=== PATIENT | male | born 1975 | race American Indian/Alaskan Native ===

== ENCOUNTER 2016-12-08 03:10 | Inpatient (IN) | payer OTHER ==
[2016-12-08] MEDS ORDERED: NACL 0.9% 1000 ML 1,000 ML IV ONE (03:18)
[2016-12-08] MEDS ORDERED: NACL 0.9% 1000 ML 1,000 ML ONE (03:18)
[2016-12-08] MEDS ORDERED: HEPARIN 10,000 UNITS/10 ML IV ONE (03:18)
[2016-12-08] MEDS ORDERED: HEPARIN 10,000 UNITS/10 ML ONE ×2 (03:18→03:58)
[2016-12-08] MEDS ORDERED: PLAVIX ONE (03:19)
--- NOTE | 2016-12-08 03:21 | Emergency Department Report ---
HPI - General Time Seen by Provider: 12/08/16 03:18 - HPI HPI: 41-year-old female presents the emergency department via EMS from home with complaint of chest pain that began about 40 minutes prior to presentation.. EKG sent by EMS was concerning for STEMI. They were 3 minutes out from the emergency department so it was rechecked upon arrival and repeat EKG does appear consistent with acute [place] in the anterolateral region. Code STEMI called and Dr. Allen was contacted and will be coming in for the operations label clerk activation. The patient complains of midsternal to left-sided chest pain. He has a past medical history of hypertension, hyperlipidemia, diabetes. He is a tobacco smoker but denies any illicit drug use. He received 324 mg of aspirin and 1 sublingual nitroglycerin in route. ED Past Medical Hx - Medications Home Medications: Home Medications Medication Instructions Recorded Confirmed Last Taken Type Unobtainable 12/08/16 12/08/16 Unknown History ED Review of Systems ROS: Stated complaint: CHEST PAIN Other details as noted in HPI Comment: All other systems reviewed and negative Constitutional: denies: chills, fever Eyes: denies: eye pain, eye discharge, vision change ENT: denies: ear pain, throat pain Respiratory: shortness of breath. denies: cough Cardiovascular: chest pain. denies: edema Gastrointestinal: denies: abdominal pain, vomiting Genitourinary: denies: urgency, dysuria Musculoskeletal: denies: back pain, joint swelling, arthralgia Skin: denies: rash, lesions Neurological: denies: headache, weakness, paresthesias Physical Exam - Physical Exam Physical Exam: GENERAL: The patient is ill-appearing and appears very uncomfortable. HENT: Normocephalic. Atraumatic. Patient has moist mucous membranes. EYES: Extraocular motions are intact. Pupils equal reactive to light bilaterally. NECK: Supple. Trachea is midline. CHEST/LUNGS: Clear to auscultation. There is no respiratory distress noted. HEART/CARDIOVASCULAR: Regular. There is no tachycardia. There is no gallop rub or murmur. ABDOMEN: Abdomen is soft, nontender. Patient has normal bowel sounds. There is no abdominal distention. SKIN: Skin is warm but the patient is diaphoretic. NEURO: The patient is awake, alert, and oriented. The patient is cooperative. The patient has no focal neurologic deficits. The patient has normal speech. MUSCULOSKELETAL: There is no tenderness or deformity. Radial pulse was +2/4 bilaterally. There is no evidence of acute injury. ED Course - Consultations Consultation #1: 12/08/16 03:26 The ticket counter, Dr. Allen, was contacted about 3:15 AM and is on his way in for a operations label clerk activation for suspected STEMI. ED Medical Decision Making - Lab Data Result diagrams: 12/08/16 03:20 12/08/16 03:20 - EKG Data -: EKG Interpreted by Me EKG shows normal: sinus rhythm, axis (left axis deviation), intervals, QRS complexes (Q waves to the anteroseptal region), ST-T waves (ST elevations to the septal and anterior and lateral leads with ST depressions in the inferior leads) Rate: normal - EKG Data Interpretation: acute WY - Radiology Data Radiology results: image reviewed interpreted by me: Chest x-ray does not show any acute process. There are no pleural effusions, obvious pneumonia and there is no pneumothorax. - Medical Decision Making 41-year-old male presents with what appears to be a STEMI. EMS EKG was suspicious but it was confirmed to be a anterolateral ST elevation WY on EKG. Code STEMI was called. The ticket counter was contacted. Blood was obtained, chest x-ray was obtained. The patient already had aspirin and sublingual nitroglycerin in route. We gave him a heparin bolus, started a nitroglycerin drip, he was given morphine and Zofran. Chest x-ray did not show any acute process. So far the labs have not shown any etiology of his symptoms are mostly unremarkable. Just as we were about to take him to the operations label clerk, the patient went into V. tach and went unresponsive. He was given a 200 J defibrillation and he went back into sinus rhythm. He then started appearing to go into a ventricular fibrillation but converted back to sinus rhythm on his own. Amiodarone was started at this point. I thought I might have to intubate the patient but he became awake and alert and was responding appropriately to questions and protecting his own airway. The patient was watched for another few minutes and remained in a normal sinus rhythm with a normal rate and he was then taken to the Shutdown Coordinator. Looking at the Shutdown Coordinator records, it appears as if the patient may have had a LAD occlusion with a bare-metal stent placed. - Differential Diagnosis STEMI, dysrhythmia, dissection Critical Care Time: Yes Critical care time in (mins) excluding proc time.: 31 Critical care attestation.: If time is entered above; I have spent that time in minutes in the direct care of this critically ill patient, excluding procedure time. Critical care time was spent on this patient and during his initial evaluation, multiple re- evaluations, interpretation of the EKG, discussion with the ticket counter, bedside treatment of tachycardia arrhythmia, interpretation of labs, and multiple discussions with the patient himself. Critical Care Time: 31 minutes ED Disposition Clinical Impression: ST elevation myocardial infarction (STEMI) of anterolateral wall, Acute coronary syndrome Chest pain Qualifiers: Chest pain type: unspecified Qualified Code(s): R07.9 - Chest pain, unspecified Hypertension Qualifiers: Hypertension type: essential hypertension Qualified Code(s): I10 - Essential ( primary) hypertension Disposition: DC-09 OP ADMIT IP TO THIS HOSP Is pt being admited?: Yes Condition: Serious Instructions: Chest Pain (ED), Hypertension (ED) Referrals: PRIMARY CARE, [Primary Care Provider] - 3-5 Days Time of Disposition: 04:57
[2016-12-08] MEDS ORDERED: MORPHINE ONE (03:28)
[2016-12-08] MEDS ORDERED: ZOFRAN ONE ×2 (03:28→16:50)
[2016-12-08] MEDS ORDERED: TRIDIL DRIP 50MG/250ML 50 MG/250 ML BOTTLE ONE (03:32)
[2016-12-08] MEDS ORDERED: TRIDIL DRIP 50MG/250ML 50 MG/250 ML BOTTLE IV SCH (03:35)
[2016-12-08] MEDS ORDERED: MORPHINE IV ONE (03:35)
[2016-12-08] MEDS ORDERED: ZOFRAN IV ONE ×2 (03:35→17:36)
[2016-12-08 03:37] LABS: Hematocrit 42.4 % (35.5-45.6); Hemoglobin 14.6 gm/dl (11.8-15.2); Mean Corpuscular HGB Conc 34 % (32-34); Mean Corpuscular Hemoglobin 30 pg (28-32); Mean Corpuscular Volume 88 fl (84-94); Platelet Count 236 K/mm3 (140-440); Red Blood Count 4.82 M/mm3 (3.65-5.03); Red Cell Distribution Width 12.8 % (13.2-15.2); White Blood Count 10.4 K/mm3 (4.5-11.0)
[2016-12-08 03:47] LABS: INR 0.9 (0.87-1.13)
[2016-12-08 03:48] LABS: Partial Thromboplastin Time 33.4 Sec. (24.2-36.6)
[2016-12-08] MEDS ORDERED: CORDARONE 150 MG in D5W 100 ML IV ONE ×3 (03:53→04:42)
[2016-12-08 03:55] LABS: Creatine Kinase MB 1.6 ng/mL (0.0-4.0)
[2016-12-08 03:56] LABS: Anion Gap 20 mmol/L; BUN/Creatinine Ratio 12.22; Blood Urea Nitrogen 11 mg/dL (9-20); Carbon Dioxide 23 mmol/L (22-30); Chloride 96.1 mmol/L (98-107); Creatine Kinase 175 units/L (55-170); Glucose 286 mg/dL (75-100); Potassium 3.3 mmol/L (3.6-5.0); Sodium 136 mmol/L (137-145)
[2016-12-08] MEDS ORDERED: HEPARIN/NS 5000 UNIT/500ML(CATH LAB) 1,000 ML IR ONE (03:57)
[2016-12-08] MEDS ORDERED: XYLOCAINE 2% INFILTRATI ONE (03:58)
[2016-12-08] MEDS ORDERED: CALAN ONE (03:58)
[2016-12-08] MEDS ORDERED: NITROGLYCERIN SYRINGE 3 ML ONE (03:58)
[2016-12-08] MEDS ORDERED: CORDARONE 900 MG in D5W 482 ML IV SCH (04:00)
[2016-12-08] MEDS ORDERED: AGGRASTAT DRIP (12.5 MG/250 ML) 12,500 MCG/250 ML BAG IV ONE (04:17)
[2016-12-08] MEDS: CORDARONE 900 MG in D5W 482 ML IV SCH (04:30)
[2016-12-08] MEDS ORDERED: HEPARIN/NS 5000 UNIT/500ML(CATH LAB) 500 ML IR ONE (04:44)
[2016-12-08] MEDS ORDERED: EFFIENT PO ONE (04:57)
[2016-12-08] MEDS ORDERED: HEPARIN/ 0.45% NACL-25,000 UNIT/500 ML 25,000 UNIT/500 ML BAG ONE (04:57)
[2016-12-08] MEDS ORDERED: AGGRASTAT DRIP (12.5 MG/250 ML) 12,500 MCG/250 ML BAG IV SCH (05:00)
[2016-12-08] MEDS ORDERED: HEPARIN/ 0.45% NACL-25,000 UNIT/500 ML 25,000 UNIT/500 ML BAG IV SCH (05:00)
[2016-12-08 06:28] LABS: Urine Drugs of Abuse Note Disclamer
--- NOTE | 2016-12-08 06:40 | History and Physical Report ---
REASON FOR ADMISSION: Anterior STEMI VF arrest. HISTORY OF PRESENT ILLNESS: The patient is a 41-year-old -[place] gentleman with history of diabetes, hypertension and tobacco abuse who presents here with 1 hour of chest pain and was found to have an anterior STEMI. STEMI protocol was initiated. He had a VF arrest in the Emergency Room, was quickly cardioverted. He is referred for urgent catheterization, diaphoresis, chest pain. No abdominal pain. No history of bleeding. No fevers, chills, nausea or vomiting. No blurred vision or headache. PAST MEDICAL HISTORY: As aforementioned. ALLERGIES: BACTRIM. SOCIAL HISTORY: Tobacco, occasional alcohol. FAMILY HISTORY: No family history of premature heart disease. PHYSICAL EXAMINATION: VITAL SIGNS: Blood pressure is 120/80. Tele reveals sinus tachycardia, heart rate in the 130s. GENERAL: This is a young -[place] gentleman, who appears in distress. HEENT: Sclerae are anicteric. NECK: Supple. No mass or JVD. CHEST: Clear to auscultation bilaterally. CARDIOVASCULAR: S1, S2. ABDOMEN: Soft, nontender, nondistended, normoactive bowel sounds in 4 quadrants. No mass or bruits. EXTREMITIES: No cyanosis, clubbing or edema. Good peripheral pulses. SKIN: Intact. No rashes. LABORATORY DATA: Pending. IMAGING: EKG reveals anterior ST elevation myocardial infarction. ASSESSMENT: In summary, the patient is a pleasant 41-year-old -[place] gentleman; 1. Acute anterolateral ST elevation myocardial infarction complicated by ventricular fibrillation arrest. STEMI protocol initiated. The patient on IV heparin, aspirin and amiodarone. Further plans contingent on heart catheterization results. JOB# [id number] SBM/NTS
[2016-12-08 06:44] LABS: Bacteria,Urine 1+ /HPF (Negative); Bilirubin,Urine NEG (Negative); Blood,Urine LG (Negative); Ketones,Urine NEG (Negative); Leukocyte Esterase,Urine NEG (Negative); Nitrite,Urine NEG (Negative); Urobilinogen,Urine < 2.0 mg/dL (<2.0)
--- NOTE | 2016-12-08 06:48 | Cardiac Catherization Report ---
CARDIAC CATHETERIZATION REFERRING PHYSICIAN: ER physician. INDICATION FOR PROCEDURE: The patient is a 41-year-old gentleman, who presents with chest pain, found to have anterior ST elevation. STEMI protocol was initiated. He had a VF arrest, which was quickly cardioverted in the Emergency Room. This caused some delay. He was awake and alert, having 10/10 chest pain, referred for STEMI diaphoretic. PROCEDURE IN DETAIL: The patient brought to the optical laboratory mechanic in an urgent fashion, prepped and draped in sterile fashion, 8 mL of 2% lidocaine used to anesthetize the right groin. A standard 6 Montserratian sheath was placed using a modified Seldinger technique. The patient was already was loaded with aspirin and heparin. A JR4 catheter used to engage the right coronary. No dampening or ventricularization. Cineangiography performed in multiple projections. I did not enter the left ventricular cavity at this point due to recent VF arrest and active STEMI. At this point, an EBU 3.75 guide was used to engage the left main. No dampening or ventricularization. Cineangiography performed in all projections. DATA: Aortic pressure is 130/90, LV pressure is 130. LVEDP of 25-30 mmHg. CORONARY ANATOMY: The right coronary is a moderate sized vessel, courses AV groove, distally bifurcates in the posterior descending and posterolateral branch. There is normal flow. He has 80% proximal stenosis and an 80% mid segment stenosis. These appear to be stable. ANDREW 3 flow non-culprit lesions. Left main is without significant disease. It bifurcates left anterior descending and left circumflex. Left circumflex is a large vessel, courses AV groove, gives off the large OM trunk, large left true circ. There appears to be a 70-80% stenosis in the ostium of the large first OM trunk. The proximal LAD is flush occluded atherothrombosis. At this point, we turned our attention to PCI. The patient is having 10/10 chest pain. Abnormal ACT is confirmed. Aggrastat is initiated. The patient asa already been loaded with aspirin, to be loaded with Effient. A Prowater wire used to cross the lesion without difficulty. A 2.5 x 12 balloon to predilate the lesion at ANDREW 3 flow returned. Next, we used a 3.0 x 18 Vision stent. Excellent angiographic result. We used an IVUS catheter and multiple passes were made, reveals a well-opposed, well expanded and well sized stent. ANDREW 3 flow noted. The patient's clinical status over the next 5 minutes, improved steadily. Chest pain is now resolved. Next, the wire and catheter were removed and exchanged for intraaortic balloon pump, which was placed under fluoroscopic guidance. CONCLUSIONS: Severe multivessel coronary disease. a. Acute atherothrombotic occlusion of the proximal LAD in the setting of an anterior ST elevation myocardial infarction complicated by VF arrest. Successful IVUS guided primary PCI with placement of bare metal stent (Vision 3.0 x 18) with excellent final angiographic and ultrasonographic results. b. An 80% proximal and 90% mid right coronary stenoses. c. An 80% ostial OM trunk. 2. Left ventriculography reveals severe anterior and anterior apical hypokinesis/dyskinesis with estimated ejection fraction of 35-40% and elevated EDP. 3. Successful placement of intraaortic balloon pump. At this point, the patient is clinically improved. Intraaortic balloon pump in place. IV heparin drip. Aggrastat drip. The patient loaded with aspirin and Effient, will need to be loaded with statin therapy as well. We will need to watch him closely. Once he is convalesced somewhat from the STEMI, we will consider staged PCI of the right coronary and left circumflex. Results of the procedure were explained at length to the patient. No family is available at this time. JOB# [id number] HIRAM/ANDREEA
[2016-12-08] MEDS ORDERED: HEPARIN 1,000 UNIT in NACL 0.9% 500 ML 500 ML IV SCH (07:30)
[2016-12-08 07:32] LABS: Anisocytosis 1+; Basophils % (Manual) 0 % (0.0-1.8); Blastocytes % (Manual) 0 %; Eosinophils % (Manual) 0 % (0.0-4.3); Giant Platelets Rare; Smudge Cells Few
[2016-12-08 07:33] LABS: Diff Status Complete; Platelet Estimate Consistent w Auto
[2016-12-08 07:42] LABS: Creatine Kinase MB 293.5 ng/mL (0.0-4.0)
[2016-12-08] MEDS: DILAUDID IV PRN ×3 (08:05→20:14)
--- NOTE | 2016-12-08 08:19 | XRay Report ---
CHEST ONE VIEW INDICATION: Chest pain. COMPARISON: None similar at this institution. FINDINGS: Portable, single, frontal chest radiograph demonstrates hypoinflation with exaggerated cardiomediastinal silhouette. Grossly clear lungs. Unremarkable bones. Extrinsic EKG leads. CONCLUSION: Limited, though unremarkable chest radiograph, as described. Thank you for the opportunity to participate in this patient's care.
--- NOTE | 2016-12-08 09:25 | Progress Note ---
Assessment and Plan Assessment: Acute anterolateral STEMI - s/p acute atherothrombotic occlusion of proximal LAD S/P VF arrest - s/p defibrillation CAD - s/p PCI of LAD with BMS; 80% proximal and 90% mid RCA stenoses; 80% ostial OM trunk CMP - EF 35-40% with severe anterior and anterior apical hypokinesis/dyskinesis per [facility] HTN Hypokalemia Tobacco use - cessation encouraged Anxiety Plan: Wean IABP with possible d/c this afternoon. Await echo. Initiate lopressor, 12.5mg PO BID. Initiate PRN xanax for anxiety. Replete serum K+. Repeat BMP and CBC in AM. Cont ASA 325, effient and lipitor. Cont heparin. Cont IV amio. D/c aggrastat gtt in setting of right groin oozing. Case d/w Dr. Quarles with [place]. Consider staged PCI of RCA and LCX once medically stabilized - will plan for PCI of RCA on Thursday and possible discharge to [place] for staged PCI of LCX at later time. Consult access clerk for assistance in ICU care. Assessment and plan reviewed with pt at bedside. The patient has been seen in conjunction with Dr. Ariel Allen who agrees with the assessment and plan of care. Subjective Date of service: 12/08/16 Principal diagnosis: anterior STEMI; VF arrest Interval history: Pt resting comfortably in bed, c/o anxiety. IABP in place, 1:1 with 100% augmentation. Some right groin oozing noted, multiple pressure dressings applied. BPs stable. Mild ST noted on telemetry. Objective Last Vital Signs Temp 98.3 F 12/08/16 08:00 Pulse 106 H 12/08/16 09:01 Resp 22 12/08/16 09:01 BP 158/102 12/08/16 09:01 Pulse Ox 95 12/08/16 09:01 - Physical Examination General: Appears Well HEENT: Positive: PERRL Neck: Positive: neck supple, trachea midline Cardiac: Positive: Regular Rhythm, S1/S2, Tachycardia Lungs: Positive: clear to auscultation Neuro: Positive: Grossly Intact, Cranial Nerve 2-12 Intact Abdomen: Positive: Unremarkable, Soft, Active Bowel Sounds. Negative: Tender Skin: Positive: Clear. Negative: Rash Incision: Cardiac Cath Site (IABP in right groin; minimal oozing noted) Musculoskeletal: No Fluid Collection, No Pain, Normal Range of Motion Extremities: Present: upper extr. pulses, lower extr. pulses. Absent: edema - Labs and Meds Cardiac Enzymes 12/08/16 Range/Units 06:11 CK-MB (CK-2) 293.5 H (0.0-4.0) ng/mL Lipids 12/08/16 Range/Units 06:11 Triglycerides 75 (2-149) mg/dL Cholesterol 177 (50-199) mg/dL HDL Cholesterol 33 L (40-59) mg/dL Cholesterol/HDL Ratio 5.36 % - Imaging and Cardiology Echo: pending Cardiac cath: report reviewed - Telemetry EKG Rhythm: Sinus Tachycardia - EKG Sinus rhythms and dysrhythmias: sinus rhythm
[2016-12-08] MEDS: LOPRESSOR PO SCH ×2 (09:58→21:29)
[2016-12-08] MEDS: ECOTRIN PO SCH (09:58)
[2016-12-08] MEDS: XANAX PO PRN ×2 (09:59→18:19)
[2016-12-08] MEDS ORDERED: K-DUR PO ONE (10:00)
[2016-12-08 10:10] LABS: Creatine Kinase 9760 units/L (55-170)
--- NOTE | 2016-12-08 11:04 | Consultation ---
History of Present Illness - Reason for Consult Consult date: 12/08/16 Post Op ICU care with balloon pump Requesting physician: HENRIETTA BOWMAN - History of Present Illness 41 y/o male, admitted with STEMI, suffered Vfib arrest, defibrillated and taken to the laboratory apparatus glass grinder for intervention. Stent placed and now on balloon pump. Cards consulted ICU for help with care. Past History Past Medical History: diabetes Past Surgical History: No surgical history Medications and Allergies Allergies Allergy/AdvReac Type Severity Reaction Status Date / Time sulfamethoxazole Allergy Rash Verified 12/08/16 03:36 [From Bactrim] trimethoprim [From Bactrim] Allergy Rash Verified 12/08/16 03:36 Home Medications Medication Instructions Recorded Confirmed Last Taken Type amLODIPine [Norvasc] 10 mg PO DAILY 12/08/16 12/08/16 12/07/16 07:00 History metFORMIN 1,000 mg PO QAM 12/08/16 12/08/16 Unknown History Active Meds: Active Medications Alprazolam (Xanax) 0.25 mg PO Q8H PRN PRN Reason: Anxiety Last Admin: 12/08/16 09:59 Dose: 0.25 mg Aspirin (Ecotrin) 325 mg PO QDAY SUZY Last Admin: 12/08/16 09:58 Dose: 325 mg Atorvastatin Calcium (Lipitor) 80 mg PO QHS SUZY Hydromorphone HCl (Dilaudid) 1 mg IV Q6HR PRN PRN Reason: Pain , Severe (7-10) Last Admin: 12/08/16 08:05 Dose: 1 mg Sodium Chloride (Nacl 0.9% 1000 Ml) 1,000 mls @ 42 mls/hr IV ONCE ONE Stop: 12/09/16 03:06 Last Admin: 12/08/16 03:30 Dose: 42 mls/hr Amiodarone HCl 900 mg/ (Dextrose) 500 mls @ 33.33 mls/hr IV DIRECT SUZY; 1 MG /MIN PRN Reason: Protocol Last Admin: 12/08/16 04:30 Dose: 1 mg/min, 33.33 mls/hr Heparin Sodium/Sodium Chloride (Heparin/ 0.45% Nacl-25,000 Unit/500 Ml) 25,000 unit in 500 mls @ 20 mls/hr IV TITRATE SUZY; 1,000 UNITS/HR PRN Reason: Protocol Last Admin: 12/08/16 03:30 Dose: 1,000 units/hr, 20 mls/hr Heparin Sodium (Porcine) 1,000 (unit/ Sodium Chloride) 501 mls @ 1 mls/hr IV DIRECT SUZY Influenza Virus Vaccine Quadrival (Fluarix Quad [id number](36 Mos+)) 0.5 ml IM .ONCE ONE Stop: 12/09/16 12:01 Metoprolol Tartrate (Lopressor) 12.5 mg PO BID [facility] Last Admin: 12/08/16 09:58 Dose: 12.5 mg Prasugrel (Effient) 10 mg PO QDAY [facility] Review of Systems All systems: negative Exam - Constitutional Vitals: Temp Pulse Resp BP Pulse Ox 98.3 F 102 H 14 158/102 98 12/08/16 08:00 12/08/16 10:01 12/08/16 10:01 12/08/16 10:01 12/08/16 10:01 Results - Labs CBC & Chem 7: 12/09/16 05:12 12/09/16 05:12 Labs: Abnormal lab results 12/08/16 12/08/16 12/08/16 Range/Units 06:10 06:11 09:25 Total Creatine Kinase 6100 H 9760 H (55-170) units/L CK-MB (CK-2) 293.5 H (0.0-4.0) ng/mL CK-MB (CK-2) Rel Index 4.8 H (0-4) Troponin T 8.120 H* D 8.740 H* (0.00-0.029) ng/mL HDL Cholesterol 33 L (40-59) mg/dL Ur Specific [place] 1.051 H (1.003-1.030) Assessment and Plan 41 y/o male with STEMI now with stent and balloon pump placement 1. Follow up cards recs 2. BP and rate control 3. HOpeful removal of balloon pump this afternoon CCT 31 minutes.
[2016-12-08] MEDS ORDERED: LOPRESSOR IV ONE (12:00)
[2016-12-08 12:32] LABS: Hematocrit 40.8 % (35.5-45.6); Hemoglobin 13.6 gm/dl (11.8-15.2); Mean Corpuscular HGB Conc 33 % (32-34); Mean Corpuscular Hemoglobin 29 pg (28-32); Mean Corpuscular Volume 88 fl (84-94); Platelet Count 260 K/mm3 (140-440); Red Blood Count 4.61 M/mm3 (3.65-5.03); Red Cell Distribution Width 13.2 % (13.2-15.2); White Blood Count 12.5 K/mm3 (4.5-11.0)
[2016-12-08 12:47] LABS: Alanine Aminotransferase 157 units/L (7-56); Albumin 3.8 g/dL (3.9-5); Albumin/Globulin Ratio 1.1 %; Alkaline Phosphatase 53 units/L (35-129); Anion Gap 21 mmol/L; BUN/Creatinine Ratio 13.33; Blood Urea Nitrogen 12 mg/dL (9-20); Calcium 8.2 mg/dL (8.4-10.2); Carbon Dioxide 21 mmol/L (22-30); Glucose 296 mg/dL (75-100); Potassium 5.3 mmol/L (3.6-5.0); Sodium 136 mmol/L (137-145); Total Protein 7.2 g/dL (6.3-8.2)
[2016-12-08 13:34] LABS: Creatine Kinase MB > 300.0 ng/mL (0.0-4.0)
[2016-12-08] MEDS ORDERED: NORMODYNE IV ONE (17:00)
[2016-12-09] MEDS: CORDARONE 900 MG in D5W 482 ML IV SCH (02:02)
[2016-12-09] MEDS: XANAX PO PRN ×2 (02:02→09:48)
[2016-12-09] MEDS: DILAUDID IV PRN (03:07)
[2016-12-09 05:57] LABS: Basophils % (Auto) 0.7 % (0.0-1.8); Eosinophils % (Auto) 0.1 % (0.0-4.3); Hematocrit 36.8 % (35.5-45.6); Hemoglobin 12.2 gm/dl (11.8-15.2); Mean Corpuscular HGB Conc 33 % (32-34); Mean Corpuscular Hemoglobin 29 pg (28-32); Mean Corpuscular Volume 89 fl (84-94); Platelet Count 205 K/mm3 (140-440); Red Blood Count 4.15 M/mm3 (3.65-5.03); Red Cell Distribution Width 12.9 % (13.2-15.2); White Blood Count 10.2 K/mm3 (4.5-11.0)
[2016-12-09 06:04] LABS: Creatine Kinase MB 193.9 ng/mL (0.0-4.0)
[2016-12-09 06:07] LABS: Alanine Aminotransferase 119 units/L (7-56); Albumin 3.6 g/dL (3.9-5); Albumin/Globulin Ratio 1.2 %; Alkaline Phosphatase 49 units/L (35-129); Anion Gap 17 mmol/L; BUN/Creatinine Ratio 12.22; Blood Urea Nitrogen 11 mg/dL (9-20); Calcium 8.3 mg/dL (8.4-10.2); Carbon Dioxide 25 mmol/L (22-30); Chloride 95.7 mmol/L (98-107); Glucose 237 mg/dL (75-100); Potassium 4.7 mmol/L (3.6-5.0); Sodium 133 mmol/L (137-145); Total Protein 6.7 g/dL (6.3-8.2)
[2016-12-09 06:34] LABS: Creatine Kinase 3819 units/L (55-170)
--- NOTE | 2016-12-09 07:24 | XRay Report ---
AP CHEST: HISTORY: chest pain, recent coronary artery catheterization AP view of the chest demonstrates a normal mediastinal and cardiac contour with clear lungs and normal bony and soft tissue structures. No change since yesterday at 0322 hours. IMPRESSION: Unremarkable AP chest.
--- NOTE | 2016-12-09 09:26 | Progress Note ---
Assessment and Plan Assessment: Acute anterolateral STEMI - s/p acute atherothrombotic occlusion of proximal LAD ; s/p IABP S/P VF arrest - in setting of ischemic event; s/p defibrillation CAD - s/p PCI of LAD with BMS; 80% proximal and 90% mid RCA stenoses; 80% ostial OM trunk Ischemic CMP - EF 30-35% with severe anterior and anterior apical hypokinesis HTN Hypokalemia - repleted Transaminitis - amiodarone d/c'd. Tobacco use - cessation encouraged Anxiety Plan: Echo reviewed - EF 30-35%, mild LVH, anterior and anteroapical segments of LV are severely hypokinetic, trace MR, mild TR Increase lopressor to 50mg PO TID. Initiate lisinopril, 20mg BID. Cont ASA 325, effient. Decrease lipitor to 40mg daily in setting of transaminitis. Wean O2 as tolerated. Cont ICU care as pt is at risk for cardiac instability. Plan for staged PCI of RCA tomorrow AM. NPO after MN. Plan for possible discharge to [place] for staged PCI of LCX at later time. Assessment and plan reviewed with pt at bedside. The patient has been seen in conjunction with Dr. Solano who agrees with the assessment and plan of care. Subjective Date of service: 12/09/16 Principal diagnosis: anterior STEMI; VF arrest Interval history: Pt resting comfortably in bed, no current cardiac complaints. IABP d/c'd yesterday afternoon without complications. Right groin IABP site c/d/i with no evidence of bleeding or hematoma, pressure dressing in place. BPs stable. Mild ST noted on telemetry. Objective Last Vital Signs Temp 100.5 F H 12/09/16 03:40 Pulse 114 H 12/09/16 07:00 Resp 23 12/09/16 07:00 BP 136/99 12/09/16 07:00 Pulse Ox 94 12/09/16 06:00 - Physical Examination General: Appears Well HEENT: Positive: PERRL Neck: Positive: neck supple, trachea midline Cardiac: Positive: Regular Rhythm, S1/S2, S3, Tachycardia Lungs: Positive: clear to auscultation Neuro: Positive: Grossly Intact, Cranial Nerve 2-12 Intact Abdomen: Positive: Unremarkable, Soft, Active Bowel Sounds. Negative: Tender Skin: Positive: Clear. Negative: Rash Incision: Cardiac Cath Site (IABP in right groin; minimal oozing noted) Musculoskeletal: No Fluid Collection, No Pain, Normal Range of Motion Extremities: Present: upper extr. pulses, lower extr. pulses. Absent: edema - Labs and Meds Cardiac Enzymes 12/08/16 12/08/16 12/09/16 Range/Units 09: 12:03 05:12 AST 1014 H 553 H (5-40) units/L CK-MB (CK-2) > 300.0 H 193.9 H (0.0-4.0) ng/mL CBC 12/08/16 12/09/16 Range/Units 12:03 05:12 WBC 12.5 H 10.2 (4.5-11.0) K/mm3 RBC 4.61 4.15 (3.65-5.03) M/mm3 Hgb 13.6 12.2 (11.8-15.2) gm/dl Hct 40.8 36.8 (35.5-45.6) % Plt Count 260 205 (140-440) K/mm3 Lymph # 2.9 (1.2-5.4) K/mm3 [place] # 0.7 (0.0-0.8) K/mm3 Eos # 0.0 (0.0-0.4) K/mm3 Baso # 0.1 (0.0-0.1) K/mm3 Comprehensive Metabolic Panel 12/08/16 12/09/16 Range/Units 12:03 05:12 Sodium 136 L 133 L (137-145) mmol/L Potassium 5.3 H D 4.7 (3.6-5.0) mmol/L Chloride 99.0 95.7 L (98-107) mmol/L Carbon Dioxide 21 L 25 (22-30) mmol/L BUN 12 11 (9-20) mg/dL Creatinine 0.9 0.9 (0.8-1.5) mg/dL Glucose 296 H 237 H (75-100) mg/dL Calcium 8.2 L 8.3 L (8.4-10.2) mg/dL AST 1014 H 553 H (5-40) units/L ALT 157 H 119 H (7-56) units/L Alkaline Phosphatase 53 49 (35-129) units/L Total Protein 7.2 6.7 (6.3-8.2) g/dL Albumin 3.8 L 3.6 L (3.9-5) g/dL - Imaging and Cardiology Echo: report reviewed (EF 30-35%, mild LVH, anterior and anteropaical segments of LV are severely hypokinetic, trace MR, mild TR) Cardiac cath: report reviewed - Telemetry EKG Rhythm: Sinus Tachycardia - EKG Sinus rhythms and dysrhythmias: sinus rhythm
[2016-12-09] MEDS ORDERED: ZOFRAN IV PRN (09:30)
[2016-12-09] MEDS: ECOTRIN PO SCH (09:47)
[2016-12-09] MEDS ORDERED: LOPRESSOR PO SCH ×5 (10:00→22:00)
[2016-12-09] MEDS ORDERED: EFFIENT PO SCH (10:00)
[2016-12-09] MEDS ORDERED: ZESTRIL PO SCH ×2 (10:00→22:00)
[2016-12-09] MEDS ORDERED: NACL 0.9% 500 ML 500 ML IV SCH (10:00)
--- NOTE | 2016-12-09 10:55 | Progress Note ---
Assessment and Plan 41 y/o male with STEMI now with stent and balloon pump placement 1. Follow up cards recs 2. BP and rate control 3. Cards wants to keep patient in the ICU given cardiac instability. CCT 31 minutes. Subjective Date of service: 12/09/16 Principal diagnosis: anterior STEMI; VF arrest Interval history: No acute events. Off amiodarone drip now and not on PO amio. No chest pain. Balloon pump out. Needs PCI staging and will likely need Surgery at a [place] facility. Objective - Constitutional Vitals: Vital Signs - 12hr 12/08/16 12/08/16 12/08/16 22:56 23:00 23:06 Temperature Pulse Rate 111 H 107 H 104 H Pulse Rate [ From Monitor] Respiratory 22 31 H 26 H Rate Blood Pressure 131/98 141/98 141/98 O2 Sat by Pulse 89 91 90 Oximetry 12/08/16 12/08/16 12/08/16 23:10 23:16 23:20 Temperature Pulse Rate 111 H 112 H 105 H Pulse Rate [ From Monitor] Respiratory 24 16 19 Rate Blood Pressure 141/98 141/98 141/98 O2 Sat by Pulse 91 87 88 Oximetry 12/08/16 12/08/16 12/08/16 23:26 23:30 23:36 Temperature Pulse Rate 104 H 108 H 103 H Pulse Rate [ From Monitor] Respiratory 17 19 27 H Rate Blood Pressure 141/98 141/98 141/98 O2 Sat by Pulse 87 91 94 Oximetry 12/08/16 12/08/16 12/08/16 23:40 23:46 23:50 Temperature Pulse Rate 104 H 103 H 106 H Pulse Rate [ From Monitor] Respiratory 32 H 25 H 27 H Rate Blood Pressure 141/98 141/98 141/98 O2 Sat by Pulse 93 93 92 Oximetry 12/08/16 12/09/16 12/09/16 23:56 00:00 00:06 Temperature 99.4 F Pulse Rate 108 H 106 H 105 H Pulse Rate [ 104 H From Monitor] Respiratory 22 16 14 Rate Blood Pressure 141/98 142/100 142/100 O2 Sat by Pulse 95 98 96 Oximetry 12/09/16 12/09/16 12/09/16 00:10 00:16 00:20 Temperature Pulse Rate 104 H 117 H 105 H Pulse Rate [ From Monitor] Respiratory 24 25 H 19 Rate Blood Pressure 142/100 142/100 142/100 O2 Sat by Pulse 97 95 92 Oximetry 12/09/16 12/09/16 12/09/16 00:26 00:30 00:36 Temperature Pulse Rate 106 H 104 H 103 H Pulse Rate [ From Monitor] Respiratory 25 H 26 H 27 H Rate Blood Pressure 142/100 142/100 142/100 O2 Sat by Pulse 93 95 94 Oximetry 12/09/16 12/09/16 12/09/16 00:40 00:46 00:50 Temperature Pulse Rate 103 H 123 H 106 H Pulse Rate [ From Monitor] Respiratory 28 H 20 32 H Rate Blood Pressure 142/100 142/100 142/100 O2 Sat by Pulse 94 94 91 Oximetry 12/09/16 12/09/16 12/09/16 00:56 01:00 01:06 Temperature Pulse Rate 105 H 106 H 111 H Pulse Rate [ From Monitor] Respiratory 28 H 30 H 13 Rate Blood Pressure 142/100 136/89 136/89 O2 Sat by Pulse 92 94 Oximetry 12/09/16 12/09/16 12/09/16 01:10 01:16 01:20 Temperature Pulse Rate 118 H 108 H 111 H Pulse Rate [ From Monitor] Respiratory 17 30 H 22 Rate Blood Pressure 136/89 136/89 136/89 O2 Sat by Pulse 93 90 92 Oximetry 12/09/16 12/09/16 12/09/16 01:26 01:30 02:00 Temperature Pulse Rate 108 H 114 H 114 H Pulse Rate [ From Monitor] Respiratory 29 H 32 H 35 H Rate Blood Pressure 136/89 136/89 146/108 O2 Sat by Pulse 92 91 Oximetry 12/09/16 12/09/16 12/09/16 03:00 03:40 04:00 Temperature 100.5 F H Pulse Rate 116 H 111 H Pulse Rate [ From Monitor] Respiratory 42 H 32 H Rate Blood Pressure 160/117 136/97 O2 Sat by Pulse 86 95 Oximetry 12/09/16 12/09/16 12/09/16 04:19 05:00 06:00 Temperature Pulse Rate 113 H 108 H Pulse Rate [ 115 H From Monitor] Respiratory 30 H 29 H 28 H Rate Blood Pressure 134/101 127/95 O2 Sat by Pulse 95 92 94 Oximetry 12/09/16 12/09/16 12/09/16 07:00 08:00 09:00 Temperature 98.3 F Pulse Rate 114 H 115 H 115 H Pulse Rate [ From Monitor] Respiratory 23 22 34 H Rate Blood Pressure 136/99 136/99 147/91 O2 Sat by Pulse 100 96 Oximetry 12/09/16 12/09/16 09:46 09:47 Temperature Pulse Rate 119 H 119 H Pulse Rate [ From Monitor] Respiratory Rate Blood Pressure 147/87 147/87 O2 Sat by Pulse Oximetry - Labs CBC & Chem 7: 12/09/16 05:12 12/09/16 05:12 Labs: Abnormal lab results 12/08/16 12/08/16 12/08/16 Range/Units 09:25 12:03 12:03 WBC 12.5 H (4.5-11.0) K/mm3 RDW (13.2-15.2) % Sodium 136 L (137-145) mmol/L Potassium 5.3 H D (3.6-5.0) mmol/L Chloride (98-107) mmol/L Carbon Dioxide 21 L (22-30) mmol/L Glucose 296 H (75-100) mg/dL POC Glucose (70-105) Calcium 8.2 L (8.4-10.2) mg/dL AST 1014 H (5-40) units/L ALT 157 H (7-56) units/L Total Creatine Kinase (55-170) units/L CK-MB (CK-2) > 300.0 H (0.0-4.0) ng/mL CK-MB (CK-2) Rel Index (0-4) Troponin T (0.00-0.029) ng/mL Albumin 3.8 L (3.9-5) g/dL 12/08/16 12/09/16 12/09/16 Range/Units 21:35 05:12 05:12 WBC (4.5-11.0) K/mm3 RDW 12.9 L (13.2-15.2) % Sodium 133 L (137-145) mmol/L Potassium (3.6-5.0) mmol/L Chloride 95.7 L (98-107) mmol/L Carbon Dioxide (22-30) mmol/L Glucose 237 H (75-100) mg/dL POC Glucose 243 H (70-105) Calcium 8.3 L (8.4-10.2) mg/dL AST 553 H (5-40) units/L ALT 119 H (7-56) units/L Total Creatine Kinase 3819 H (55-170) units/L CK-MB (CK-2) 193.9 H (0.0-4.0) ng/mL CK-MB (CK-2) Rel Index 5.0 H (0-4) Troponin T 7.730 H* (0.00-0.029) ng/mL Albumin 3.6 L (3.9-5) g/dL
[2016-12-09] MEDS ORDERED: D50W (25GM) Syringe IV PRN (11:09)
[2016-12-09] MEDS ORDERED: LOPRESSOR PO ONE (12:00)
[2016-12-09] MEDS ORDERED: Fluarix Quad 2017-2018(36 MOS+) IM ONE (12:00)
[2016-12-09] MEDS: NOVOLOG SUB-Q SCH ×3 (12:22→23:31)
[2016-12-10 03:22] LABS: Eosinophils % (Auto) 0.2 % (0.0-4.3); Hematocrit 32.2 % (35.5-45.6); Hemoglobin 11.3 gm/dl (11.8-15.2); Mean Corpuscular HGB Conc 35 % (32-34); Mean Corpuscular Hemoglobin 31 pg (28-32); Mean Corpuscular Volume 88 fl (84-94); Platelet Count 196 K/mm3 (140-440); Red Blood Count 3.67 M/mm3 (3.65-5.03); Red Cell Distribution Width 12.6 % (13.2-15.2); White Blood Count 9.2 K/mm3 (4.5-11.0)
[2016-12-10 03:41] LABS: Alanine Aminotransferase 71 units/L (7-56); Albumin 3.1 g/dL (3.9-5); Albumin/Globulin Ratio 0.9 %; Alkaline Phosphatase 44 units/L (35-129); Anion Gap 16 mmol/L; BUN/Creatinine Ratio 11.11; Blood Urea Nitrogen 10 mg/dL (9-20); Calcium 8.3 mg/dL (8.4-10.2); Carbon Dioxide 25 mmol/L (22-30); Chloride 99.2 mmol/L (98-107); Glucose 159 mg/dL (75-100); Potassium 3.9 mmol/L (3.6-5.0); Sodium 136 mmol/L (137-145); Total Protein 6.4 g/dL (6.3-8.2)
[2016-12-10 03:42] LABS: INR 1.05 (0.87-1.13)
[2016-12-10] MEDS ORDERED: LOPRESSOR PO SCH ×2 (06:00)
[2016-12-10] MEDS ORDERED: EFFIENT PO SCH ×2 (06:00→10:00)
[2016-12-10] MEDS ORDERED: ZESTRIL PO SCH ×2 (06:00→10:00)
[2016-12-10] MEDS: NOVOLOG SUB-Q SCH ×3 (06:03→18:05)
[2016-12-10] MEDS ORDERED: NACL 0.9% 500 ML 500 ML IV SCH (07:00)
[2016-12-10] MEDS: ECOTRIN PO SCH ×2 (07:59→10:31)
[2016-12-10] MEDS ORDERED: ECOTRIN PO ONE (08:00)
[2016-12-10] MEDS ORDERED: HEPARIN/NS 5000 UNIT/500ML(CATH LAB) 1,000 ML IR ONE (08:17)
[2016-12-10] MEDS ORDERED: CALAN ONE (08:17)
[2016-12-10] MEDS ORDERED: HEPARIN 10,000 UNITS/10 ML ONE (08:17)
[2016-12-10] MEDS ORDERED: XYLOCAINE 2% INFILTRATI ONE (08:17)
[2016-12-10] MEDS ORDERED: NITROGLYCERIN SYRINGE 3 ML ONE (08:18)
[2016-12-10] MEDS ORDERED: VERSED ONE (08:26)
[2016-12-10] MEDS ORDERED: SUBLIMAZE ONE (08:26)
[2016-12-10] MEDS ORDERED: NACL 0.9% 100 ML ONE (08:33)
[2016-12-10] MEDS ORDERED: ANGIOMAX IV ONE (08:33)
[2016-12-10] MEDS: CORDARONE 900 MG in D5W 482 ML IV SCH (08:45)
[2016-12-10] MEDS ORDERED: AGGRASTAT DRIP (12.5 MG/250 ML) 12,500 MCG/250 ML BAG IV ONE (09:30)
--- NOTE | 2016-12-10 11:23 | Progress Note ---
Assessment and Plan Assessment: Acute anterolateral STEMI - s/p acute atherothrombotic occlusion of proximal LAD ; s/p IABP S/P VF arrest - in setting of ischemic event; s/p defibrillation CAD - s/p PCI of LAD with BMS; 80% proximal and 90% mid RCA stenoses; 80% ostial OM trunk Ischemic CMP - EF 30-35% with severe anterior and anterior apical hypokinesis per echo 12/08/2016 HTN Hypokalemia - repleted Transaminitis - amiodarone d/c'd. Tobacco use - cessation encouraged Anxiety Plan: S/p staged PCI of RCA this AM via right radial artery, EF 20-25%. Will order LifeVest given ICMP with apparent reduction in EF since admission. Cont ASA 325, effient, lipitor 40, lopressor 50mg BID, and lisinopril 20mg daily. Wean O2 as tolerated. Cont ICU care as pt is at risk for cardiac instability. Plan for possible discharge home tomorrow with follow up at [facility] on Thursday - for staged PCI of LCX with [facility] at a later time. Assessment and plan reviewed with pt at bedside. The patient has been seen in conjunction with Dr. Ariel Allen who agrees with the assessment and plan of care. Subjective Date of service: 12/10/16 Principal diagnosis: anterior STEMI; VF arrest Interval history: Pt resting comfortably in bed, for [facility] today. VSS. No cardiac complaints. Objective Last Vital Signs Temp 99.1 F 12/10/16 08:00 Pulse 93 H 12/10/16 07:25 Resp 17 12/10/16 07:25 BP 104/77 12/10/16 07:00 Pulse Ox 99 12/10/16 07:25 - Physical Examination General: Appears Well HEENT: Positive: PERRL Neck: Positive: neck supple, trachea midline Cardiac: Positive: Reg Rate and Rhythm, S1/S2, S3 Lungs: Positive: clear to auscultation Neuro: Positive: Grossly Intact, Cranial Nerve 2-12 Intact Abdomen: Positive: Unremarkable, Soft, Active Bowel Sounds. Negative: Tender Skin: Positive: Clear. Negative: Rash Incision: Cardiac Cath Site (IABP in right groin; minimal oozing noted) Musculoskeletal: No Fluid Collection, No Pain, Normal Range of Motion Extremities: Present: upper extr. pulses, lower extr. pulses. Absent: edema - Labs and Meds Cardiac Enzymes 12/10/16 Range/Units 02:54 AST 262 H (5-40) units/L Coagulation 12/10/16 Range/Units 02:54 PT 13.6 (12.2-14.9) Sec. INR 1.05 (0.87-1.13) CBC 12/10/16 Range/Units 02:54 WBC 9.2 (4.5-11.0) K/mm3 RBC 3.67 (3.65-5.03) M/mm3 Hgb 11.3 L (11.8-15.2) gm/dl Hct 32.2 L (35.5-45.6) % Plt Count 196 (140-440) K/mm3 Lymph # 2.3 (1.2-5.4) K/mm3 Cavalier # 0.7 (0.0-0.8) K/mm3 Eos # 0.0 (0.0-0.4) K/mm3 Baso # 0.1 (0.0-0.1) K/mm3 Comprehensive Metabolic Panel 12/10/16 Range/Units 02:54 Sodium 136 L (137-145) mmol/L Potassium 3.9 (3.6-5.0) mmol/L Chloride 99.2 (98-107) mmol/L Carbon Dioxide 25 (22-30) mmol/L BUN 10 (9-20) mg/dL Creatinine 0.9 (0.8-1.5) mg/dL Glucose 159 H (75-100) mg/dL Calcium 8.3 L (8.4-10.2) mg/dL AST 262 H (5-40) units/L ALT 71 H (7-56) units/L Alkaline Phosphatase 44 (35-129) units/L Total Protein 6.4 (6.3-8.2) g/dL Albumin 3.1 L (3.9-5) g/dL - Imaging and Cardiology Echo: report reviewed (EF 30-35%, mild LVH, anterior and anteropaical segments of LV are severely hypokinetic, trace MR, mild TR) Cardiac cath: report reviewed - EKG Sinus rhythms and dysrhythmias: sinus rhythm
--- NOTE | 2016-12-10 12:26 | Progress Note ---
Assessment and Plan 41 y/o male with STEMI now with stent and balloon pump placement 1. Follow up cards recs 2. BP and rate control 3. Cards wants to keep patient in the ICU given cardiac instability. Now that 2nd lesion has been addressed, will ask if ok to move if beds are needed. Otherwise, patient hopefully will be discharged from the hospital tomorrow rather the floor or ICU to be determined. 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 Tolerated well with no complaints Objective - Constitutional Vitals: Vital Signs - 12hr 12/10/16 12/10/16 12/10/16 01:00 02:00 03:00 Temperature Pulse Rate 107 H 108 H 111 H Pulse Rate [ From Monitor] Respiratory 30 H 33 H 16 Rate Blood Pressure 109/75 109/63 105/74 O2 Sat by Pulse 92 92 99 Oximetry 12/10/16 12/10/16 12/10/16 04:00 05:00 06:00 Temperature Pulse Rate 107 H 109 H 107 H Pulse Rate [ From Monitor] Respiratory 16 20 16 Rate Blood Pressure 109/70 108/79 104/74 O2 Sat by Pulse 92 91 99 Oximetry 12/10/16 12/10/16 12/10/16 06:08 06:09 07:00 Temperature Pulse Rate 111 H 111 H 99 H Pulse Rate [ From Monitor] Respiratory 24 Rate Blood Pressure 104/74 104/74 104/77 O2 Sat by Pulse 96 Oximetry 12/10/16 12/10/16 12/10/16 07:25 08:00 10:00 Temperature 99.1 F Pulse Rate 100 H Pulse Rate [ 93 H From Monitor] Respiratory 17 Rate Blood Pressure O2 Sat by Pulse 99 Oximetry 12/10/16 12/10/16 10:05 11:00 Temperature Pulse Rate 100 H 99 H Pulse Rate [ From Monitor] Respiratory 15 32 H Rate Blood Pressure 114/75 123/85 O2 Sat by Pulse 97 100 Oximetry - Labs CBC & Chem 7: 12/10/16 02:54 12/10/16 02:54 Labs: Abnormal lab results 12/09/16 12/09/16 12/09/16 Range/Units 08:03 11:19 16:46 Hgb (11.8-15.2) gm/dl Hct (35.5-45.6) % MCHC (32-34) % RDW (13.2-15.2) % Dawson % (Auto) (0.0-7.3) % Activated Clotting Time (74-137) Sodium (137-145) mmol/L Glucose (75-100) mg/dL POC Glucose 258 H 245 H 234 H (70-105) Calcium (8.4-10.2) mg/dL AST (5-40) units/L ALT (7-56) units/L Albumin (3.9-5) g/dL 12/09/16 12/09/16 12/10/16 Range/Units 21:43 23:16 02:54 Hgb 11.3 L (11.8-15.2) gm/dl Hct 32.2 L (35.5-45.6) % MCHC 35 H (32-34) % RDW 12.6 L (13.2-15.2) % Dawson % (Auto) 8.0 H (0.0-7.3) % Activated Clotting Time (74-137) Sodium (137-145) mmol/L Glucose (75-100) mg/dL POC Glucose 248 H 251 H (70-105) Calcium (8.4-10.2) mg/dL AST (5-40) units/L ALT (7-56) units/L Albumin (3.9-5) g/dL 12/10/16 12/10/16 12/10/16 Range/Units 02:54 05:12 09:03 Hgb (11.8-15.2) gm/dl Hct (35.5-45.6) % MCHC (32-34) % RDW (13.2-15.2) % Dawson % (Auto) (0.0-7.3) % Activated Clotting Time 213 H (74-137) Sodium 136 L (137-145) mmol/L Glucose 159 H (75-100) mg/dL POC Glucose 176 H (70-105) Calcium 8.3 L (8.4-10.2) mg/dL AST 262 H (5-40) units/L ALT 71 H (7-56) units/L Albumin 3.1 L (3.9-5) g/dL 12/10/16 Range/Units 09:37 Hgb (11.8-15.2) gm/dl Hct (35.5-45.6) % MCHC (32-34) % RDW (13.2-15.2) % Dawson % (Auto) (0.0-7.3) % Activated Clotting Time 252 H (74-137) Sodium (137-145) mmol/L Glucose (75-100) mg/dL POC Glucose (70-105) Calcium (8.4-10.2) mg/dL AST (5-40) units/L ALT (7-56) units/L Albumin (3.9-5) g/dL
--- NOTE | 2016-12-10 15:34 | Cardiac Catherization Report ---
CARDIAC CATHETERIZATION INDICATION FOR PROCEDURE: The patient is a pleasant 41-year-old -[place] gentleman who presented with a VF arrest in the setting of an anterior STEMI 3 days ago. Underwent primary PCI of proximal LAD, balloon pump placement., EF approximately 25%, anterior dyskinesis. The patient was found also to have significant disease and tandem lesions in the proximal and mid right coronary. At this point, the patient has been clinically improved. Given severity of RCA lesions, decided to proceed with PCI of RCA prior to discharge. Discussed with the [facility] physicians. PROCEDURE IN DETAIL: The patient was brought to the catheterization lab in a postabsorptive state, prepped and draped in sterile fashion. Jarad's test in right hand was normal. A 2 mL of 2% lidocaine used to anesthetize the right wrist. A standard 6-Greek hydrophilic sheath used to cannulate the right radial artery via modified Seldinger technique. All exchanges performed to exchange a J-tip guidewire. JL3.5 catheter used to engage the left main. No dampening or ventricularization. Cineangiography performed in all projections. JR4 guide used to cross the aortic valve under fluoroscopic guidance. Left ventriculography performed in 30 DECKER and 30 AZERI projection via hand injections. Next, catheter flushed. Manual pullback performed with continuous pressure monitoring. Catheter used to engage the right coronary. Angiography performed in multiple projections. DATA: Aortic pressure is 110/70, LV pressure is 110, LVEDP of 18 to 20 mmHg. Left ventriculography revealed severe anterior and anteroapical hypokinesis, estimated ejection fraction of 20-25%. The entire anterior apex appears akinetic/dyskinetic. The left main without significant disease. Proximal LAD stent is widely patent. ANDREW 3 flow in the LAD. No other significant disease in the LAD. Left circumflex reveals a 90% ostial OM1 trunk. ANDREW 3 flow noted. Right coronary with a 90% proximal stenosis and 95% mid stenosis and ANDREW 2 flow. Given the area risk, we decided to proceed with PCI of RCA. Angiomax given. The patient was loaded with Effient and aspirin. A PulseOn wire used to cross the lesion without difficulty. I used a 2.5 x 12 balloon to predilate the midlesion. We used a 2.75 x 15 Vision bare metal stent. The reason we used a bare metal stent, we are unclear about his compliance. Bare metal was also used as LAD. A good angiographic result. Next, we placed a 3.0 x 15 Vision bare metal stent in the proximal lesion at 12 SU for 30 seconds. Excellent angiographic result. IVUS was now performed on both lesions. We postdilated both stents with a 3.5 x 8 noncompliant balloon. Repeat IVUS reveals a well expanded and well opposed stent. No residual stenosis. They are both well opposed and well expanded. ANDREW 3 flow throughout. The patient is clinically stable, chest pain free. Final angiogram reveals excellent result. CONCLUSIONS: 1. Severe multivessel coronary artery disease. A successful IVUS guided PCI of proximal and mid right coronary with excellent final angiographic and ultrasonographic results (vision 2.75 x 15 in the mid segment and vision 3.0 x 15 in the proximal segment). 2. Patent proximal LAD stent. 3. A 90% ostial first OM. Smooth ANDREW 3 flow. 4. Left ventriculography revealed severe anterior and anteroapical hypokinesis with estimated ejection fraction of 20-25%. EDP is near normal. The patient is clinically stable and improved. At this point, we will go ahead and watch the patient overnight, probable discharge in a.m. Already discussed with the [facility] team. The patient will follow up with [facility] and stage the circumflex in the coming week or so. Results of procedure explained to the patient. All questions and concerns were addressed. JOB# [id number] HIRAM/ANDREEA
[2016-12-10] MEDS: LOPRESSOR PO SCH (22:55)
[2016-12-11] MEDS: NOVOLOG SUB-Q SCH ×4 (01:00→18:14)
[2016-12-11 05:31] LABS: Hematocrit 33.3 % (35.5-45.6); Hemoglobin 11.6 gm/dl (11.8-15.2); Mean Corpuscular HGB Conc 35 % (32-34); Mean Corpuscular Hemoglobin 31 pg (28-32); Mean Corpuscular Volume 88 fl (84-94); Platelet Count 220 K/mm3 (140-440); Red Blood Count 3.78 M/mm3 (3.65-5.03); Red Cell Distribution Width 12.4 % (13.2-15.2); White Blood Count 7.3 K/mm3 (4.5-11.0)
[2016-12-11 05:51] LABS: Alanine Aminotransferase 50 units/L (7-56); Albumin 3.2 g/dL (3.9-5); Albumin/Globulin Ratio 0.9 %; Alkaline Phosphatase 51 units/L (35-129); Anion Gap 16 mmol/L; Blood Urea Nitrogen 12 mg/dL (9-20); Calcium 8.8 mg/dL (8.4-10.2); Carbon Dioxide 24 mmol/L (22-30); Chloride 94.8 mmol/L (98-107); Glucose 233 mg/dL (75-100); Sodium 131 mmol/L (137-145); Total Protein 6.9 g/dL (6.3-8.2)
--- NOTE | 2016-12-11 09:26 | Progress Note ---
Assessment and Plan Assessment: Acute anterolateral STEMI - s/p acute atherothrombotic occlusion of proximal LAD ; s/p IABP S/P VF arrest - in setting of ischemic event; s/p defibrillation CAD - s/p PCI of LAD with BMS; PCI of RCA with BMS; 80% ostial OM trunk Ischemic CMP - EF 20-25% HTN Sinus Tachycardia - suspect physiologic secondary to AMI Hypokalemia - repleted Transaminitis - amiodarone d/c'd. Fever - T max 101 following STEMI; WBCs WNL; no clinical evidence of acute infection. Tobacco use - cessation encouraged Anxiety Plan: Await LifeVest placement. Cont ASA 325, effient, lipitor 40, lopressor 50mg BID, and lisinopril 20mg daily. Pending LifeVest is placed, pt may discharge home from cardiology standpoint. Pt is to follow up with [facility] tomorrow (he already has an appointment scheduled) - for staged PCI of LCX with [facility] at a later time. Assessment and plan reviewed with pt at bedside. The patient has been seen in conjunction with Dr. Ariel Allen who agrees with the assessment and plan of care. Subjective Date of service: 12/11/16 Principal diagnosis: anterior STEMI; VF arrest Interval history: Pt resting comfortably in bed, no cardiac complaints. VSS. Tolerating activity without difficulty. Awaiting LifeVest placement. Objective Last Vital Signs Temp 99.8 F H 12/11/16 05:08 Pulse 105 H 12/11/16 05:08 Resp 20 12/11/16 05:08 BP 95/64 12/11/16 05:08 Pulse Ox 97 12/11/16 05:08 - Physical Examination General: Appears Well HEENT: Positive: PERRL Neck: Positive: neck supple, trachea midline Cardiac: Positive: Regular Rhythm, S1/S2, Tachycardia Lungs: Positive: clear to auscultation Neuro: Positive: Grossly Intact, Cranial Nerve 2-12 Intact Abdomen: Positive: Unremarkable, Soft, Active Bowel Sounds. Negative: Tender Skin: Positive: Clear. Negative: Rash Incision: Cardiac Cath Site (IABP in right groin; minimal oozing noted) Musculoskeletal: No Fluid Collection, No Pain, Normal Range of Motion Extremities: Present: upper extr. pulses, lower extr. pulses. Absent: edema - Labs and Meds Cardiac Enzymes 12/11/16 Range/Units 04:44 AST 133 H (5-40) units/L CBC 12/11/16 Range/Units 04:44 WBC 7.3 (4.5-11.0) K/mm3 RBC 3.78 (3.65-5.03) M/mm3 Hgb 11.6 L (11.8-15.2) gm/dl Hct 33.3 L (35.5-45.6) % Plt Count 220 (140-440) K/mm3 Comprehensive Metabolic Panel 12/11/16 Range/Units 04:44 Sodium 131 L (137-145) mmol/L Potassium 4.0 (3.6-5.0) mmol/L Chloride 94.8 L (98-107) mmol/L Carbon Dioxide 24 (22-30) mmol/L BUN 12 (9-20) mg/dL Creatinine 0.8 (0.8-1.5) mg/dL Glucose 233 H (75-100) mg/dL Calcium 8.8 (8.4-10.2) mg/dL AST 133 H (5-40) units/L ALT 50 (7-56) units/L Alkaline Phosphatase 51 (35-129) units/L Total Protein 6.9 (6.3-8.2) g/dL Albumin 3.2 L (3.9-5) g/dL - Imaging and Cardiology Echo: report reviewed (EF 30-35%, mild LVH, anterior and anteropaical segments of LV are severely hypokinetic, trace MR, mild TR) Cardiac cath: report reviewed - EKG Sinus rhythms and dysrhythmias: sinus rhythm
[2016-12-11] MEDS: ECOTRIN PO SCH (09:52)
[2016-12-11] MEDS ORDERED: EFFIENT PO SCH (10:00)
[2016-12-11] MEDS ORDERED: ZESTRIL PO SCH (10:00)
[2016-12-11] MEDS: LOPRESSOR PO SCH (12:03)
[2016-12-11 12:09] VITALS: BP 119/81
--- NOTE | 2016-12-11 15:58 | Discharge Summary ---
Providers - Providers Date of Admission: 12/08/16 04:55 Date of discharge: 12/11/16 Attending physician: HENRIETTA BOWMAN Primary care physician: RACK WASHER Hospitalization Condition: Serious Pertinent studies: LHC and echo Procedures: LHC with PCI and echo Hospital course: Pt presented on 12/08/2016 with c/o chest pain and was found to have anterior ST elevations on EKG. He suffered VF arrest in the ED and required defibrillation. STEMI protocol was activated and once stabilized, pt was taken to laboratory analyst for emergent LHC. He successfully underwent PCI of LAD with BMS, and was also found to have 80% proximal and 90% mid right coronary stenoses and 80% ostial OM trunk stenosis. He underwent staged PCI of RCA on 12/10/2016. He was found to have ICMP and thus LifeVest was ordered. Pt is now currently medically stable for discharge. Pending LifeVest is placed, pt may discharge home from cardiology standpoint. On discharge, pt is to cont ASA 325, effient, lipitor 40 , lopressor 50mg BID, and lisinopril 20mg daily. Pt is to follow up with [facility] tomorrow (he already has an appointment scheduled) - for staged PCI of LCX with [facility] at a later time. Disposition: [id number] HOME UNDER HOME HLTH - Discharge Diagnoses (1) ST elevation myocardial infarction (STEMI) of anterolateral wall Status: Acute (2) Ventricular fibrillation Status: Acute (3) CAD (coronary artery disease) Status: Chronic Qualifiers: Coronary Disease-Associated Artery/Lesion type: C [place] vs. transplanted heart: N Associated angina: A (4) Stented coronary artery Status: Chronic (5) Ischemic cardiomyopathy Status: Chronic (6) Sinus tachycardia Status: Chronic (7) Hypertension Status: Chronic Qualifiers: Hypertension type: essential hypertension Qualified Code(s): I10 - Essential (primary) hypertension (8) Tobacco use Status: Chronic Core Measure Documentation - Palliative Care Palliative Care/ Comfort Measures: Not Applicable - Core Measures Any of the following diagnoses?: acute NV - Acute NV Discharge Requirements Aspirin at discharge: Yes KAYLEE/ARB for LVSD if EF <40%: Yes Beta noah at discharge: Yes Statin for LDL = or >100 mg/dl on DC: Yes Exam - Constitutional Vitals: Temp Pulse Resp BP Pulse Ox 98.8 F 97 H 20 119/81 97 12/11/16 08:00 12/11/16 12:03 12/11/16 08:00 12/11/16 12:03 12/11/16 05:08 General appearance: Present: no acute distress - EENT Eyes: Present: PERRL, EOM intact ENT: hearing intact, clear oral mucosa, dentition normal - Neck Neck: Present: supple, normal ROM - Cardiovascular Rhythm: regular Heart Sounds: Present: S1 & S2 - Extremities Extremities: no ischemia, pulses intact, pulses symmetrical, No edema, normal temperature, normal color, Full ROM Peripheral Pulses: within normal limits - Abdominal General gastrointestinal: Present: soft, non-tender - Integumentary Integumentary: Present: clear, warm, dry - Musculoskeletal Musculoskeletal: strength equal bilaterally - Psychiatric Psychiatric: appropriate mood/affect Plan Activity: advance as tolerated Diet: low fat, low cholesterol, low salt Wound: open to air, keep clean and dry, per your surgeon's advice Follow up with: PRIMARY CARE, [Primary Care Provider] - 3-5 Days Prescriptions: AtorvaSTATin [Lipitor] 40 mg PO QHS #30 tablet Lisinopril [Zestril TAB] 20 mg PO DAILY #30 tablet Metoprolol [Lopressor TAB] 50 mg PO BID #60 tablet Prasugrel [Effient] 10 mg PO QDAY #30 tablet
== END 2016-12-11 19:40 | disposition home health service (06) | DRG 270 ==
LOC: ED 03:10 → CC1 04:55 → 4A 12-10 18:51
PROVIDERS: ADMIT Internal Medicine; ATTEND Internal Medicine
PROC: 3E0234Z Introduction of Serum, Toxoid and Vaccine into Muscle, Percutaneous Approach (ICD-10-PCS; principal; 2016-12-08)
PROC: 5A02210 Assistance with Cardiac Output using Balloon Pump, Continuous (ICD-10-PCS; 2016-12-08)
PROC: 02703DZ Dilation of Coronary Artery, One Artery with Intraluminal Device, Percutaneous Approach (ICD-10-PCS; 2016-12-08)
PROC: 4A023N7 Measurement of Cardiac Sampling and Pressure, Left Heart, Percutaneous Approach (ICD-10-PCS; 2016-12-08)
PROC: B2111ZZ Fluoroscopy of Multiple Coronary Arteries using Low Osmolar Contrast (ICD-10-PCS; 2016-12-08)
PROC: B2151ZZ Fluoroscopy of Left Heart using Low Osmolar Contrast (ICD-10-PCS; 2016-12-08)
PROC: 4A023N7 Measurement of Cardiac Sampling and Pressure, Left Heart, Percutaneous Approach (ICD-10-PCS; 2016-12-10)
PROC: B2111ZZ Fluoroscopy of Multiple Coronary Arteries using Low Osmolar Contrast (ICD-10-PCS; 2016-12-10)
PROC: B2151ZZ Fluoroscopy of Left Heart using Low Osmolar Contrast (ICD-10-PCS; 2016-12-10)
DX: I21.3 ST elevation (STEMI) myocardial infarction of unspecified site (principal); I49.01 Ventricular fibrillation; I10 Essential (primary) hypertension; E87.6 Hypokalemia; F17.200 Nicotine dependence, unspecified, uncomplicated; F41.9 Anxiety disorder, unspecified; R74.0 Nonspecific elevation of levels of transaminase and lactic acid dehydrogenase [LDH]; I25.10 Atherosclerotic heart disease of native coronary artery without angina pectoris; I25.5 Ischemic cardiomyopathy; R00.0 Tachycardia, unspecified; Z23 Encounter for immunization; Z88.8 Allergy status to other drugs, medicaments and biological substances; Z71.6 Tobacco abuse counseling
CPT/HCPCS: 33967; 36415; 71010; 80048; 80053; 80061; 80307; 81001; 82550; 82553; 82962; 84484; 85007; 85025; 85027; 85347; 85610; 85730; 86850; 86900; 86901; 90686; 92928; 92941; 92978; 93005; 93010; 93306; 93458; 94760; 99406; A9270-GY; C1725; C1753; C1769; C1876; C1887; C1894; J0282; J0583; J1170; J1644; J1815; J2250; J2270; J2405; J3010; J3246; J7030; J7040; J7060; Q9967